=== PATIENT | female | born 1945 | race Caucasian/White ===

== ENCOUNTER 2017-03-05 10:04 | Day surgery (SDC) | payer MEDICARE ==
[~2017-03-05 10:04] MED LIST: RINGER'S SOLUTION,LACTATED 1,000 ML IV PRN
[2017-03-05] MEDS ORDERED: RINGER'S SOLUTION,LACTATED 1,000 ML IV PRN (11:45)
[2017-03-05 12:47] VITALS: BP 139/67
--- NOTE | 2017-03-05 13:51 | OR ---
Operative Report - Dictated Report Narrative: OPERATIVE REPORT DATE OF OPERATION: 03/05/2017 PREOPERATIVE DIAGNOSIS: No recent dedicated colon studies. Diarrhea POSTOPERATIVE DIAGNOSIS: Moderate to severe diverticulosis OPERATION: Colonoscopy SURGEON: Sudarshan Sanchez MD ANESTHESIA: JYOTHI Caba CRNA INDICATIONS FOR PROCEDURE: The patient is a 71-year-old female referred by Dr. Cole Reed. Her last colonoscopy was in 2004. There is no family history of colon cancer. She had a recent episode of diarrhea and has relatively irregular bowel movements. Her sister has diverticulosis. FINDINGS: Moderate to severe sigmoid diverticulosis otherwise normal colonoscopy to the cecum NARRATIVE OF PROCEDURE: The patient was identified in the holding area, and prior to the administration of anesthetic, a multidisciplinary timeout was observed. With the patient in the left lateral position and after the administration of intravenous sedation, the perineum was inspected. There was no evidence of pilonidal disease or skin breakdown. The external appearance of the anus was normal. Sphincter tone was good. The flexible fiberoptic colonoscope was inserted into the rectum which was insufflated with air. The rectal mucosa and submucosal vascular pattern appeared normal, the prep was seen to be complete. The scope was advanced through the sigmoid colon, which contained numerous large noninflamed diverticular openings some of which were impacted with stool. The scope was advanced up the descending colon, and around the splenic flexure where the triangular haustral architecture of the transverse colon was seen. The scope was advanced across the transverse colon, around the hepatic flexure to the cecum, where the confluence of tenia and the ileocecal valve were identified. The mucosa at this level appeared normal. The scope was then slowly withdrawn in a circular fashion so that all aspects of colonic mucosa were inspected. The colon was normal in course and caliber. The haustral architecture appeared well preserved throughout with no evidence of external compression. The mucosa and submucosal vascular pattern appeared normal, specifically there was no gross evidence to suggest colitis or inflammatory bowel disease and no AV malformations were seen. She had moderate to severe sigmoid diverticulosis with scattered proximal diverticula as well. No polyps were encountered. The scope was gradually withdrawn to the level of the rectum. As much insufflated air as possible was removed. The scope was withdrawn from the patient and the procedure terminated. The patient tolerated the anesthetic and procedure well without complication and was transferred back to the ambulatory surgery area awake and in stable condition. The patient remained stable throughout a period of postoperative observation. She denied abdominal discomfort, was able to tolerate by mouth intake, and was up without assistance. I shared the operative findings with the patient and she was given copies of the photographs which appear in the medical record. She was discharged home with instructions not to engage in hazardous activity today , but may resume normal activity tomorrow, and advance diet as tolerated. She is to continue those medications as listed in the history and physical exam. A pamphlet on diverticular disease was reviewed with her and given to her. A trial of Benefiber or FiberCon in conjunction with a high fiber diet was recommended. She is to call the office weekly with progress reports. RECOMMENDATION: Colon surveillance in 10 years depending upon findings or symptoms. Reviewed and electronically signed
== END 2017-03-05 10:05 | disposition home or self-care (01) ==
LOC: AMB 10:04
PROVIDERS: ATTEND Surgery
PROC: 0DJD8ZZ Inspection of Lower Intestinal Tract, Via Natural or Artificial Opening Endoscopic (ICD-10-PCS; principal; 2017-03-05 10:35)
DX: Z12.11 Encounter for screening for malignant neoplasm of colon (principal); K57.30 Diverticulosis of large intestine without perforation or abscess without bleeding; I10 Essential (primary) hypertension; E11.9 Type 2 diabetes mellitus without complications; E78.5 Hyperlipidemia, unspecified; E03.9 Hypothyroidism, unspecified; E55.9 Vitamin D deficiency, unspecified; F32.9 Major depressive disorder, single episode, unspecified; E66.01 Morbid (severe) obesity due to excess calories; Z68.41 Body mass index [BMI] 40.0-44.9, adult

== ENCOUNTER 2017-08-03 06:43 | Emergency (ER) | payer MEDICARE ==
[2017-08-03] MEDS ORDERED: ASPIRIN 81 MG TAB.CHEW PO ONE (06:57)
[2017-08-03] MEDS ORDERED: ASPIRIN 81 MG TAB.CHEW ONE (06:58)
[2017-08-03] MEDS ORDERED: LIDOCAINE HCL 20 ML UDC PO ONE (06:58)
[2017-08-03] MEDS ORDERED: SUCRALFATE 1 G/10 ML UDC PO ONE (06:58)
[2017-08-03] MEDS ORDERED: MAG HYDROX/ALUMINUM HYD/SIMETH 30 ML UDC PO ONE (06:58)
[2017-08-03 07:14] LABS: Hemoglobin 12.4 gm/dL (12.5-16.0); Mean Cell Volume 83.5 fl (78-100); Mean Corpuscular Hemoglobin 26.6 pg (27-31); Mean Corpuscular Hgb Conc 31.8 g/dl (32-36); Mean Platelet Volume 11.4 fl (6.0-9.5); Neutrophil # 6.2 K/mm3 (1.3-6.0); Neutrophil % 65.7 % (42-75.0); Platelet Count 287 K/mm3 (150-450); Red Blood Count 4.67 M/mm3 (4.2-5.4); Red Cell Distribution Width 14.3 % (11.5-14.0); White Blood Count 9.4 K/mm3 (4.0-10.5)
[2017-08-03 07:22] LABS: Prothrombin Time (Patient) 9.5 Seconds (9.0-11.0)
[2017-08-03 07:23] LABS: INR 0.95 INR (0.90-1.10); Partial Thrombolplastin Time 25.2 Seconds (24-32)
[2017-08-03 07:31] LABS: ALT 49 U/L (19-67); AST 27 U/L (0-48); Albumin * 3.3 gm/dl (3.4-5.0); Alkaline Phosphatase * 102 U/L (50-170); Amylase * 19 U/L (25-115); Anion Gap 12.9 mmol/L (6.8-13.8); Bilirubin, Total 0.5 mg/dL (0.0-1.1); Blood Urea Nitrogen 12 mg/dL (3-23); Ca. Corrected For Albumin 9.5 mg/dL (8.4-10.2); Calcium * 9.3 mg/dL (7.9-10.9); Carbon Dioxide 28.2 mmol/L (24-32.6); Chloride 104 mmol/L (97-106); Glucose * 157 mg/dL (70-110); Lipase 123 U/L (73-393); Potassium 4.1 mmol/L (3.4-4.6); Sodium 141 mmol/L (132-142); Total Protein 6.8 gm/dL (6.2-8.2); Troponin I Less than 0.017 ng/ml (0.00-0.10)
--- NOTE | 2017-08-03 07:31 | ERNOTE ---
<Georges Hyde - Last Filed: 08/03/17 07:43> Chest Pain/Cardiac HPI Date of Service: 08/03/17 Chief Complaint: Chest Pain Time Seen by Provider: 08/03/17 06:56 Source: patient, family Exam Limitations: no limitations Immunizations: IMMUNIZATION HX Immunizations Up to Date No History of Influenza Vaccine Yes Hx Pneumococcal Vaccination Yes Allergies/Adverse Reactions: Allergies No Known Allergies Allergy (Verified 03/05/17 10:27) Home Medications: HOME MEDICATIONS Aspirin [Aspirin Chewable] 81 mg PO DAILY 01/05/14 [Last Taken Unknown] Atenolol [Tenormin (Atenolol)] 100 mg PO BID 01/05/14 [Last Taken 03/03/17] Calcium Carbonate [Tums] 1,250 mg PO DAILY 01/05/14 [Last Taken Unknown] Ergocalciferol (Vitamin D2) [Vitamin D2] 50,000 unit PO Q7D 01/05/14 [Last Taken Unknown] Levothyroxine Sodium [Tirosint] 88 mcg PO DAILY 01/05/14 [Last Taken Unknown] Losartan Potassium [Cozaar] 100 mg PO DAILY 01/05/14 [Last Taken Unknown] Venlafaxine HCl 75 mg PO BID 01/05/14 [Last Taken Unknown] Amantadine HCl [Amantadine] 100 mg PO TID 02/04/17 [Last Taken Unknown] glipiZIDE [Glipizide] 5 mg PO BID 02/04/17 [Last Taken Unknown] Famotidine [Pepcid] 20 mg PO BID #30 tablet 08/03/17 [Last Taken Unknown] metFORMIN HCL [Metformin HCl] 1,000 mg PO BID 08/03/17 [Last Taken Unknown] Narrative: patient had onset of epigastric pain last evening with radiation int, to lower chest patient has had this numerous times in past Timing: constant Severity/Quality: moderate, burning, dull, pressure Location: substernal Chest Pain Radiation: sternal notch Activities at Onset: none Modifying Factors - Improves: Present: nothing Modifying Factors - Worsens: Present: nothing Nitro Today/Relief: no nitro taken today Aspirin Treatment Today: no aspirin today Associated Symptoms: Present: denies symptoms Prior Chest Pain/Cardiac Workup: Reports: other - similair episode in past Prior Treatment: Reports: other - patient has tried otc gi meds over night without relief Review of Systems - Narrative Narrative: unremarkable - Review of Systems Constitutional: Present: See HPI, malaise EYE: Present: no symptoms reported ENT: Present: no symptoms reported Respiratory: Present: no symptoms reported Cardiology: Present: See HPI, chest pain Gastrointestinal/Abdominal: Present: See HPI, nausea, abdominal pain Genitourinary: Present: no symptoms reported Musculoskeletal: Present: no symptoms reported Skin: Present: no symptoms reported Neurological: Present: no symptoms reported Endocrine: Present: no symptoms reported Hematologic/Lymphatic: Present: no symptoms reported Psych: Present: no symptoms reported All Other Systems: All systems neg except as marked - Narrative Narrative: unremarkable - Patient's Past Medical History Patient History - Medical: Chronic Pain, Diabetes Type 2, Hypothyroidism, Other Patient History - Cardiac/Respiratory: Hypertension, Hyperlipidemia Patient History - Cancer: No Hx of Cancer Patient History - Surgical Procedures: Cholecystectomy, Colonoscopy, Hysterectomy, Other, Orthopedic Patient History - Other: None LMP (females 10-50): Menopausal - Family History Family History:: no untoward family reactions to anesthesia, no familial bleeding tendencies, no family history of clotting disorders, no family history of premature - Family History Father Family History - Medical: , Osteoporosis Family History - Cardiac/Respiratory: COPD, Other Family History - Cancer: No pertinent family hx Mother Family History - Medical: , Diabetes Type 2 Family History - Cardiac/Respiratory: Coronary Heart Disease Family History - Cancer: No pertinent family hx - Social History Living Situations: spouse Abuse History: No History of abuse Psych History: Hx of Anxiety, Hx of Depression, Current tx/ever been on anti- depressants or anti-anxiety meds Smoking Status: Never smoker Have you smoked in the past 12 months: No Do you dip or chew tobacco: No Patient requests Smoking Cessation Consult: No Initiate information on Smoking Cessation: No Alcohol Use: rarely Drug Use: none - Immunizations Immunizations Up to Date: No Hx Pneumococcal Vaccination: Yes History of Influenza Vaccine: Yes Physical Exam - Physical Exam General Appearance: Present: mild distress, anxious Head Exam: Present: normal inspection, no evidence of injury Eye Exam: Normal inspection: bilateral, PERRL: bilateral, EOMI: bilateral Ears, Nose, Throat: Present: normal ENT inspection Neck: Present: normal inspection, nontender Respiratory: Present: no respiratory distress, normal breath sounds, no accessory muscle use, chest nontender, lungs clear Cardiovascular/Chest: Present: regular rate, rhythm, no murmur, normal peripheral pulses Peripheral Pulses: N=norm/S=strong/W=weak/B=bound/A=absent: Carotid (R): Normal , Carotid (L): Normal, Radial (R): Normal, Radial (L): Normal, Femoral (R): Normal, Femoral (L): Normal, Dorsalis-pedis (R): Normal, Dorsalis-pedis (L): Normal Gastrointestinal/Abdominal: Present: normal bowel sounds, no organomegaly, tenderness - tenderness in epigastrium Back Exam: Present: normal inspection, no vertebral tenderness Extremity Exam: Present: normal inspection, non-tender, normal range of motion, no edema Neurological Exam: Present: alert, oriented, normal mood/affect, no motor/ sensory deficits DTR: N=norm/NB=norm/brisk/A=abs/DD=dull/dimin/HC=hyperactive: Bicep (R): Normal , Bicep (L): Normal, Tricep (R): Normal, Tricep (L): Normal, Knee (R): Normal, Knee (L): Normal, Ankle (R): Normal, Ankle (L): Normal Skin Exam: Present: normal color, warm/dry Lymphatic Exam: Present: no adenopathy ED Progress - Date and Time Seen: Date and Time: 08/03/17 07:43 patient improved somewhat to have troponin redrawn - Results and Orders Patient's Lab Results:: I have reviewed the patient's lab results. - Vital Signs Patient's Vital Signs:: I have reviewed the patient's vital signs. Vital Signs: Vital Signs 08/03/17 08/03/17 08/03/17 06:49 07:01 07:04 Temperature 36.8 C 36.6 C Pulse Rate 65 68 64 Respiratory 14 15 Rate Blood Pressure 186/83 171/62 O2 Sat by Pulse 98 94 Oximetry - EKG EKG: NSR EKG read: Interp. by me - X-Ray X-Ray #1 X-Ray: chest Interpretation: Interp. by tn - nad - Progress/Reassessment Chief Complaint: Chest Pain - Transfer of Care Physician Sign Out: Georges Hyde Receiving Physician: Lamer,Mukesh Departure Clinical Impression: Atypical chest pain GERD (gastroesophageal reflux disease) Qualifiers: Esophagitis presence: with esophagitis Qualified Code(s): K21.0 - Gastro- esophageal reflux disease with esophagitis - Departure Disposition: Home self-care Condition: Good Instructions: Heartburn, [id number] Referrals: Franco Yanes MD [Primary Care Provider] - Prescriptions: Famotidine [Pepcid] 20 mg PO BID #30 tablet <Mukesh King - Last Filed: 08/03/17 09:52> Chest Pain/Cardiac HPI Immunizations: IMMUNIZATION HX Immunizations Up to Date No History of Influenza Vaccine Yes Hx Pneumococcal Vaccination Yes ED Progress - Vital Signs Vital Signs: Vital Signs 08/03/17 08/03/17 08/03/17 06:49 07:01 07:04 Temperature 36.8 C 36.6 C Pulse Rate 65 68 64 Respiratory 14 15 Rate Blood Pressure 186/83 171/62 O2 Sat by Pulse 98 94 Oximetry 08/03/17 09:12 Temperature 36.4 C L Pulse Rate 66 Respiratory 15 Rate Blood Pressure 161/61 O2 Sat by Pulse 94 Oximetry Plan - Plan Plan: Patient's second troponin was also negative. Patient appears to be describing an esophagitis type picture with a possible hiatal hernia, and she states she even sometimes has difficulty swallowing and gets a burning sensation in the same area where she was having chest pain. I will start the patient on Pepcid for right now and we will refer her to her family doctor for possible stress test and/or an EGD in the foreseeable future.
[2017-08-03 10:26] VITALS: BP 165/78
== END 2017-08-03 10:22 | disposition home or self-care (01) ==
LOC: ER 06:43
DX: K21.0 Gastro-esophageal reflux disease with esophagitis (principal); R07.89 Other chest pain; E11.9 Type 2 diabetes mellitus without complications; E03.9 Hypothyroidism, unspecified; I10 Essential (primary) hypertension